=== PATIENT | female | born 1975 | race Hispanic/Latino ===

== ENCOUNTER 2017-08-30 10:32 | Emergency (ER) | payer OTHER ==
[~2017-08-30 10:32] MED LIST: TORADOL10 MG PO; VICODIN5-300 PO; ZOFRAN4 M1 SL
--- NOTE | 2017-08-30 12:18 | ED HEADACHE COMPLAINT ---
History of Present Illness General Chief Complaint: Headache Stated Complaint: NELSON X 2 DAYS Source: patient Exam Limitations: no limitations Vital Signs & Intake/Output Vital Signs & Intake/Output Vital Signs Date Time Temp Pulse Resp B/P B/P Pulse O2 O2 Flow FiO2 Mean Ox Delivery Rate 08/30 1039 96.5 84 16 109/75 98 Room Air Allergies Coded Allergies: ciprofloxacin (From CIPRO) (HIVES 08/30/17) Reconcile Medications Albuterol Sulfate (Proair Hfa) 90 MCG HFA.AER.AD 2 PUF INH AD PRN RESP. ( Reported) Butalb/Acetaminophen/Caffeine (Esgic Capsule) 50 MG-325 MG-40 MG CAPSULE 1 CAP PO Q6H PRN HEADACHE Esomeprazole (Nexium) 40 MG CAPSULE.DR 1 CAP PO DAILY GI (Reported) Metoclopramide HCl (Reglan) 10 MG TABLET 1 TAB PO 4 TIMES/DAY PRN NAUSEA 30 minutes before meals and bedtime Nystatin (Unknown Strength) ORAL.SUSP (Unknown Dose) UNKNOWN (Reported) Prednisone (Unknown Strength) TABLET (Unknown Dose) UNKNOWN (Reported) Triage Note: PT TO ED WITH NELSON FOR A FE DAYS. HAS USED HOME TREATMENT WITH NO RELIEF. STARTING TO FEEL NAUSEOUS NOW WELL. Triage Nurses Notes Reviewed? yes Onset: Abrupt Duration: day(s): (2), constant, continues in ED Timing: single episode today Quality/Severity: mild, moderate, pressure Severity Numbers: 8 Head Injury Location: frontal, parietal No Modifying Factors: none Associated Symptoms: nausea/vomiting LMP (ages 10-50): unknown : No Patient currently breastfeeds: No HPI: 42-year-old female history of kidney stones and anemia present evaluation of a headache. Patient reports that headache developed about 2 days ago and has been persistent. The pain is located in the right frontal and right parietal areas. Described as pressure. There is no head trauma or triggering event no neck pain. Patient notes she has a history of similar headaches but never been this severe or persistent. She's been taking ibuprofen without any improvement last dose yesterday. No fevers changes in vision. She does note associated nausea and vomiting. No neck stiffness chest pain shortness of breath rashes or any other symptoms. Past History Travel History Traveled to [place] past 21 day No Medical History Any Pertinent Medical History? 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 No Review of Systems Review of Systems Constitutional: Reports: no symptoms. Eyes: Reports: no symptoms. Ears, Nose, Throat, Mouth: Reports: no symptoms. Respiratory: Reports: no symptoms. Cardiovascular: Reports: no symptoms. Gastrointestinal/Abdominal: Reports: see HPI, nausea, vomiting. Genitourinary: Reports: no symptoms. Musculoskeletal: Reports: no symptoms. Skin: Reports: no symptoms. Neurological/Psychological: Reports: see HPI, headache. Hematologic/Endocrine: Reports: no symptoms. Endocrine: Reports: no symptoms. Immunologic/Allergic: Reports: no symptoms. All Other Systems: Reviewed and Negative Physical Exam Physical Exam General Appearance: well developed/nourished, no apparent distress, alert, awake Head: atraumatic, normal appearance Eyes: Bilateral: normal appearance, PERRL, EOMI. Ears, Nose, Throat: hearing grossly normal Neck: normal inspection, supple, full range of motion Respiratory: normal breath sounds, chest non-tender, no respiratory distress, lungs clear Cardiovascular: regular rate/rhythm, normal peripheral pulses Gastrointestinal: soft, non-tender Back: normal inspection, normal range of motion, no vertebral tenderness Extremities: normal inspection, normal range of motion, no edema Psychiatric: awake, alert, oriented x 3 Cranial Nerves: normal hearing, normal speech, PERRL Coordination/Gait: normal finger to nose, normal gait Motor/Sensory: no motor/sensory deficits, motor deficit Skin: intact, normal color, warm/dry Lymphatic: no anterior cervical francis Core Measures Sepsis Present: No Sepsis Focused Exam Completed? No Progress Differential Diagnosis: cluster NELSON, IC mass/tumor, intracranial Hem., meningitis , migraine NELSON, musculoskeletal pain, sinusitis, subarach. Hem., tension NELSON, temporal arteritis Plan of Care: Orders Procedure Date/time Status URINE 08/30 1119 Complete URINALYSIS 08/30 1119 Complete Laboratory Tests 08/30/17 1140: Urinalysis HEAVY H, Urine Color YEL, Urine Clarity HAZY H, Urine pH 7.5, Ur Specific [place] 1.015, Urine Protein NEG, Urine Ketones NEG, Urine Nitrite NEG, Urine Bilirubin NEG, Urine Urobilinogen 0.2, Ur Leukocyte Esterase NEG, Ur Microscopic SEDIMENT EXAMINED, Urine RBC RARE, Urine WBC RARE, Ur Epithelial Cells MANY H, Urine Bacteria FEW H, Urine Hemoglobin NEG, Urine Glucose NEG, Urine Test NEGATIVE Patient is here with a headache that started 2 days ago and has been persistent. She has a history of similar headaches but not this severe and persistent. No head trauma she is afebrile vital signs are stable neurologically intact. Onset was gradual no thunderclap symptoms gradually got worse. CT scan ordered patient medicated with Reglan and Toradol and Benadryl. Reports persistent headache despite Toradol. Fioricet was ordered. CT scan is negative patient is feeling better now after medications. She is able to tolerate fluids. There's been no vomiting here. She remains neurologically intact. Patient was given prescription for Reglan and Fioricet to go home with. Advised her to follow-up with her doctor the next few days. Discussed return precautions patient agrees the plan Diagnostic Imaging: Viewed by Me: CT Scan. Discussed w/RAD: CT Scan. Radiology Impression: PATIENT: DERREK NEGRETE PRESENT AGE: 42 PATIENT ACCOUNT NO: [id number] : 76 LOCATION: [facility] ORDERING PHYSICIAN: Michael PATTERSON SERVICE DATE: 08/30/17 EXAM TYPE: CAT - CT HEAD WO IV CONTRAST EXAMINATION: CT HEAD WITHOUT CONTRAST CLINICAL INFORMATION: Headache. Nausea for 2 days. Presumptive diagnosis of intracranial mass. COMPARISON: None TECHNIQUE: Contiguous axial imaging was performed from the skull base to vertex without intravenous administration of contrast. DLP: 620.93 mGy-cm FINDINGS: There is no evidence of acute intracranial hemorrhage or territorial infarction. No abnormal mass effect or midline shift is seen. Kirby to white matter differentiation is well preserved. No extra-axial fluid collections are identified. The ventricles are normal in size. There is no abnormal attenuation within the brain parenchyma. The osseous structures and soft tissues are normal. The mastoid air cells and visualized portions of the paranasal sinuses are well aerated. IMPRESSION: No acute intracranial pathology. DICTATED BY: Natalia Sandoval MD DATE/TIME DICTATED:08/30/171227 DINING MANAGER:MITALI DATE/TIME TRANSCRIBED:07/15/18 / 1228 CONFIDENTIAL, DO NOT COPY WITHOUT APPROPRIATE AUTHORIZATION. <Electronically signed in Other Vendor System> SIGNED BY: Natalia Sandoval MD 08/30/17 1235 Departure Departure Disposition: HOME OR SELF CARE Condition: Stable Clinical Impression Primary Impression: Headache Qualifiers: Headache type: unspecified Headache chronicity pattern: acute headache Intractability: not intractable Qualified Code: R51 - Headache Referrals: Robert Farias MD (PCP/Family) Additional Instructions: Rest, drink plenty of fluids. Continue Reglan and Fioricet and ibuprofen for headache and nausea. Make a follow-up with YOUr primary care doctor for the next week. Monitor symptoms and return with any concerns. Departure Forms: Customer Survey General Discharge Information Prescriptions: Current Visit Scripts Butalb/Acetaminophen/Caffeine (Esgic Capsule) 1 CAP PO Q6H PRN HEADACHE #20 CAP Metoclopramide HCl (Reglan) 1 TAB PO 4 TIMES/DAY PRN NAUSEA #30 TAB 30 minutes before meals and bedtime
--- NOTE | 2017-08-30 12:35 | CT SCAN REPORT ---
EXAMINATION: CT HEAD WITHOUT CONTRAST CLINICAL INFORMATION: Headache. Nausea for 2 days. Presumptive diagnosis of intracranial mass. COMPARISON: None TECHNIQUE: Contiguous axial imaging was performed from the skull base to vertex without intravenous administration of contrast. DLP: 620.93 mGy-cm FINDINGS: There is no evidence of acute intracranial hemorrhage or territorial infarction. No abnormal mass effect or midline shift is seen. Kirby to white matter differentiation is well preserved. No extra-axial fluid collections are identified. The ventricles are normal in size. There is no abnormal attenuation within the brain parenchyma. The osseous structures and soft tissues are normal. The mastoid air cells and visualized portions of the paranasal sinuses are well aerated. IMPRESSION: No acute intracranial pathology.
[2017-08-30] MEDS ORDERED: PREDNISONE10 M2 (13:01)
[2017-08-30] MEDS ORDERED: NEXIUM40 M1 PO (13:02)
[2017-08-30] MEDS ORDERED: NYSTATIN100000 UNI (13:02)
[2017-08-30] MEDS ORDERED: PROAIR HFA8.5 GM INH (13:02)
[2017-08-30] MEDS ORDERED: ESGIC CAPSULE1 EACH PO (13:07)
[2017-08-30] MEDS ORDERED: REGLAN10 M1 PO (13:07)
[2017-08-30 13:23] VITALS: BP 112/74
== END 2017-08-30 13:23 ==
LOC: ERH 10:32
DX: R51 Headache (principal)
CPT/HCPCS: 81001; 81025; 96372; J1885

== ENCOUNTER 2017-09-01 18:29 | Emergency (ER) | payer OTHER ==
[~2017-09-01] VITALS: Ht 167.6 cm; Wt 82.6 kg
[~2017-09-01 18:29] MED LIST changes: +ESGIC CAPSULE1 EACH PO; +NEXIUM40 M1 PO; +NYSTATIN100000 UNI; +PREDNISONE10 M2; +PROAIR HFA8.5 GM INH; +REGLAN10 M1 PO
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
[2017-09-01 20:33] VITALS: BP 112/74
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
[2017-09-01] MEDS ORDERED: CYCLOBENZAPRINE10 M1 PO (21:37)
== END 2017-09-01 21:47 ==
LOC: ERH 18:29
DX: S16.1XXA Strain of muscle, fascia and tendon at neck level, initial encounter (principal); V49.40XA Driver injured in collision with unspecified motor vehicles in traffic accident, initial encounter; Y92.9 Unspecified place or not applicable
CPT/HCPCS: 72050; 73030-LT; 81025

== ENCOUNTER 2017-11-03 15:04 | Emergency (ER) | payer OTHER ==
[~2017-11-03] VITALS: Ht 157.5 cm; Wt 81.6 kg
[~2017-11-03 15:04] MED LIST changes: +CYCLOBENZAPRINE10 M1 PO
[2017-11-03 16:02] LABS: ABSOLUTE BASOPHIL COUNT 0 /CUMM (0.0-0.2); ABSOLUTE EOSINOPHIL COUNT 0.2 /CUMM (0.0-0.7); ABSOLUTE GRANULOCYTE CT 4.3 /CUMM (1.4-6.5); ABSOLUTE LYMPH COUNT 1.9 /CUMM (1.2-3.4); ABSOLUTE MONOCYTE COUNT 0.5 /CUMM (0.10-0.60); BASOPHIL % 0.5 % (0.0-2.0); EOSINOPHIL % 2.7 % (0-5); GRANULOCYTE % 61.7 % (42.2-75.2); HEMATOCRIT 33.9 % (37-47); MEAN CORPUSCULAR HGB 25.3 PG (27.0-31.0); MEAN CORPUSCULAR HGB CONC 32.1 G/DL (33.0-37.0); MEAN CORPUSCULAR VOLUME 78.7 FL (81.0-99.0); MEAN PLATELET VOLUME 8.2 FL (7.4-10.4); PLATELET COUNT 265 /CUMM (130-400); RBC DISTRIBUTION WIDTH 15.4 % (11.5-14.5)
--- NOTE | 2017-11-03 17:08 | CT SCAN REPORT ---
EXAMINATION: CT ABDOMEN AND PELVIS WITHOUT CONTRAST CLINICAL INFORMATION: Right lower quadrant pain, rule out appendicitis. COMPARISON: CT abdomen and pelvis 06/30/2014 TECHNIQUE: Multidetector volumetric imaging was performed from the superior aspect of the liver through the pubic symphysis. Sagittal and coronal reformatted images were obtained on the technologist's workstation. DLP: 463.21 mGy-cm FINDINGS: LUNG BASES: The visualized lung bases are unremarkable. LIVER, GALLBLADDER, AND BILIARY TREE: The liver is normal in size, shape, and attenuation. No focal hepatic lesion or biliary ductal dilatation is present. Small calcified granuloma in segment 6 of the liver. The gallbladder is decompressed. PANCREAS: Unremarkable. SPLEEN: Unremarkable. ADRENAL GLANDS: Unremarkable. KIDNEYS AND URETERS: The kidneys are symmetrically sized. There is a 3.7 cm cyst in the upper pole of the left kidney. Punctate nonobstructing calculus in the lower pole of the left kidney. No hydronephrosis. BLADDER: The partially distended bladder is unremarkable. There is a punctate calcification seen on axial series 3, 626/744 and coronal series 601, 67/139 that I do not believe is intraluminal however recommend correlation with symptoms and urinalysis to assess whether this may have been a passed renal calculus. GASTROINTESTINAL TRACT: The small and large bowel are unremarkable. No evidence of bowel obstruction, bowel wall thickening are surrounding inflammatory change. The appendix is not definitively visualized however there are no secondary inflammatory signs to suggest an acute appendicitis. ABDOMINAL WALL: No significant hernia is appreciated. LYMPH NODES: No abdominal or pelvic lymphadenopathy. VASCULAR: Unremarkable. PELVIC VISCERA: Unremarkable. OSSEOUS STRUCTURES: Unremarkable. IMPRESSION: 1. No acute process in the abdomen or pelvis to explain the patient's right lower quadrant pain. The appendix is not visualized however there are no secondary signs of an acute appendicitis. 2. Nonobstructing punctate calculus in the lower pole of the left kidney. 3. There is a punctate calcification in the pelvis, unclear if it is within the urinary bladder or adjacent to it on this noncontrast enhanced exam. Recommend correlation with clinical history and urinalysis as it is possible this may represent a passed renal calculus.
--- NOTE | 2017-11-03 17:37 | ED GI/GU/ABDOMINAL COMPLAINT ---
History of Present Illness General Chief Complaint: Abdominal Pain/Flank Pain Stated Complaint: SENT BY URGENT CARE FOR EVAL OF ABD PAIN Source: patient Exam Limitations: no limitations Vital Signs & Intake/Output Vital Signs & Intake/Output Vital Signs Date Time Temp Pulse Resp B/P B/P Pulse O2 O2 Flow FiO2 Mean Ox Delivery Rate 11/03 1743 Room Air 11/03 1740 98.1 84 18 110/71 98 Room Air 11/03 1523 96.3 86 15 118/89 98 Room Air Room Air Allergies Coded Allergies: ciprofloxacin (From CIPRO) (HIVES 08/30/17) Reconcile Medications Albuterol Sulfate (Proair Hfa) 90 MCG HFA.AER.AD 2 PUF INH AD PRN RESP. ( Reported) Butalb/Acetaminophen/Caffeine (Esgic Capsule) 50 MG-325 MG-40 MG CAPSULE 1 CAP PO Q6H PRN HEADACHE Cyclobenzaprine HCl 10 MG TABLET 1 TAB PO QPM PRN MUSCLE RELAXOR Esomeprazole (Nexium) 40 MG CAPSULE.DR 1 CAP PO DAILY GI (Reported) Ibuprofen 800 MG TABLET 1 TAB PO TID pain Metoclopramide HCl (Reglan) 10 MG TABLET 1 TAB PO 4 TIMES/DAY PRN NAUSEA 30 minutes before meals and bedtime Nitrofurantoin Monohyd/M-Cryst (Macrobid 100 MG Capsule) 100 MG CAPSULE 1 CAP PO BID uti with food Nystatin (Unknown Strength) ORAL.SUSP (Unknown Dose) UNKNOWN (Reported) Phenazopyridine HCl (Pyridium) 200 MG TABLET 1 TAB PO TID uti Prednisone (Unknown Strength) TABLET (Unknown Dose) UNKNOWN (Reported) Triage Note: PT SENT TO ED FOR R/O APPENDICITIS FROM WALK IN CLINIC FOR PERIUMBILICAL PAIN WITH RLQ PAIN THAT STARTED THIS MORNING. DENIES N/V/D/ G/U SYMPTOMS. Triage Nurses Notes Reviewed? yes ? n Is pt currently ? No Onset: Abrupt Duration: hour(s): Location: periumbilical, right lower quadrant Radiation: no radiation HPI: 42-year-old in by walk in clinic to rule out appendicitis. He started with some pain around her belly button. Denies any nausea vomiting. Denies any fever chills. Denies any changes in bowel movement. Denies any urinary symptoms or vaginal discharge. She reports that she went to the walk-in clinic and when she was examined the majority of her pain was in her right lower quadrant. Past History Travel History Traveled to [place] past 21 day No Medical History Any Pertinent Medical History? 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 No Review of Systems Review of Systems Constitutional: Reports: no symptoms. EENTM: Reports: no symptoms. Respiratory: Reports: no symptoms. Cardiovascular: Reports: no symptoms. GI: Reports: no symptoms. Genitourinary: Reports: no symptoms. Musculoskeletal: Reports: no symptoms. Skin: Reports: no symptoms. Neurological/Psychological: Reports: no symptoms. Hematologic/Endocrine: Reports: no symptoms. Immunologic/Allergic: Reports: no symptoms. All Other Systems: Reviewed and Negative Physical Exam Physical Exam General Appearance: well developed/nourished, no apparent distress, alert, awake Head: atraumatic, normal appearance Eyes: Bilateral: normal appearance. Ears, Nose, Throat, Mouth: hearing grossly normal, moist mucous membrane Neck: normal inspection Respiratory: no respiratory distress Cardiovascular: regular rate/rhythm Gastrointestinal: soft, tenderness right lower quadrant Back: normal inspection Extremities: normal range of motion Neurologic/Psych: awake, alert, oriented x 3, normal gait Skin: intact, normal color Core Measures ACS in differential dx? No Sepsis Present: No Sepsis Focused Exam Completed? No Progress Differential Diagnosis: appendicitis, biliary colic, diverticulitis, gastritis, kidney stone, UTI/pyelo Plan of Care: Orders Procedure Date/time Status Add-on Test (ER Only) 11/03 1741 Active CULTURE,URINE 11/03 1537 Active URINE 11/03 1526 Complete URINALYSIS 11/03 1526 Complete LIPASE 11/03 1526 Complete COMPREHENSIVE METABOLIC PANEL 11/03 1526 Complete CBC WITHOUT DIFFERENTIAL 11/03 1526 Complete Laboratory Tests 11/03/17 1545: Anion Gap 9, Estimated GFR > 60, BUN/Creatinine Ratio 14.3, Glucose 111 H, Calcium 9.0, Total Bilirubin 0.2, AST 18, ALT 23, Alkaline Phosphatase 65, Total Protein 7.1, Albumin 3.9, Globulin 3.2, Albumin/Globulin Ratio 1.2, Lipase 164, CBC w Diff NO MAN DIFF REQ, RBC 4.30, MCV 78.7 L, MCH 25.3 L, MCHC 32.1 L, RDW 15.4 H, MPV 8.2, Gran % 61.7, Lymphocytes % 27.5, Monocytes % 7.6, Eosinophils % 2.7, Basophils % 0.5, Absolute Granulocytes 4.3, Absolute Lymphocytes 1.9, Absolute Monocytes 0.5, Absolute Eosinophils 0.2, Absolute Basophils 0 11/03/17 1537: Urinalysis MANY H, Urine Color YEL, Urine Clarity HAZY H, Urine pH 7.5, Ur Specific Universal 1.015, Urine Protein NEG, Urine Ketones NEG, Urine Nitrite NEG, Urine Bilirubin NEG, Urine Urobilinogen 0.2, Ur Leukocyte Esterase TRACE H, Ur Microscopic SEDIMENT EXAMINED, Urine WBC RARE, Ur Epithelial Cells FEW, Urine Hemoglobin NEG, Urine Glucose NEG, Urine Test NEGATIVE Microbiology 11/03 1536 URINE ROUT: Urine Culture - RECD Diagnostic Imaging: Viewed by Me: CT Scan. Discussed w/RAD: CT Scan. Radiology Impression: PATIENT: DERREK NEGRETE PRESENT AGE: 42 PATIENT ACCOUNT NO: [id number] : 76 LOCATION: [facility] ORDERING PHYSICIAN: Shar PATTERSON SERVICE DATE: 11/03/17 EXAM TYPE: CAT - CT ABD & PELVIS W/O IV CONTRAS EXAMINATION: CT ABDOMEN AND PELVIS WITHOUT CONTRAST CLINICAL INFORMATION: Right lower quadrant pain, rule out appendicitis. COMPARISON: CT abdomen and pelvis 06/30/2014 TECHNIQUE: Multidetector volumetric imaging was performed from the superior aspect of the liver through the pubic symphysis. Sagittal and coronal reformatted images were obtained on the technologist's workstation. DLP: 463.21 mGy-cm FINDINGS: LUNG BASES: The visualized lung bases are unremarkable. LIVER, GALLBLADDER, AND BILIARY TREE: The liver is normal in size, shape, and attenuation. No focal hepatic lesion or biliary ductal dilatation is present. Small calcified granuloma in segment 6 of the liver. The gallbladder is decompressed. PANCREAS: Unremarkable. SPLEEN: Unremarkable. ADRENAL GLANDS: Unremarkable. KIDNEYS AND URETERS: The kidneys are symmetrically sized. There is a 3.7 cm cyst in the upper pole of the left kidney. Punctate nonobstructing calculus in the lower pole of the left kidney. No hydronephrosis. BLADDER: The partially distended bladder is unremarkable. There is a punctate calcification seen on axial series 3, 626/744 and coronal series 601, 67/139 that I do not believe is intraluminal however recommend correlation with symptoms and urinalysis to assess whether this may have been a passed renal calculus. GASTROINTESTINAL TRACT: The small and large bowel are unremarkable. No evidence of bowel obstruction, bowel wall thickening are surrounding inflammatory change. The appendix is not definitively visualized however there are no secondary inflammatory signs to suggest an acute appendicitis. ABDOMINAL WALL: No significant hernia is appreciated. LYMPH NODES: No abdominal or pelvic lymphadenopathy. VASCULAR: Unremarkable. PELVIC VISCERA: Unremarkable. OSSEOUS STRUCTURES: Unremarkable. IMPRESSION: 1. No acute process in the abdomen or pelvis to explain the patient's right lower quadrant pain. The appendix is not visualized however there are no secondary signs of an acute appendicitis. 2. Nonobstructing punctate calculus in the lower pole of the left kidney. 3. There is a punctate calcification in the pelvis, unclear if it is within the urinary bladder or adjacent to it on this noncontrast enhanced exam. Recommend correlation with clinical history and urinalysis as it is possible this may represent a passed renal calculus. DICTATED BY: Juvenal Stevenson MD DATE/TIME DICTATED:11/03/171654 CERTIFIED CREDIT COUNSELOR:MITALI DATE/TIME TRANSCRIBED:11/03/171654 CONFIDENTIAL, DO NOT COPY WITHOUT APPROPRIATE AUTHORIZATION. <Electronically signed in Other Vendor System> SIGNED BY: Juvenal Stevenson MD 11/03/17 1708 Initial ED EKG: none Comments: 11/03/2017 11:18:46 PM Patient clinically looks well. Patient is in no apparent distress. Patient is nontoxic-appearing. Resting comfortably in room. Follow-up with PCP. Questionable recently passed kidney stone. Patient understands and agrees a plan of care. Departure Departure Disposition: HOME OR SELF CARE Condition: Stable Clinical Impression Primary Impression: Abdominal pain Referrals: Robert Farias MD (PCP/Family) Additional Instructions: Follow-up with primary care doctor. Return if any concerns worsening symptoms. Please go over all results of today's visit with your primary care doctor. Contact your primary care doctor to let them know you were here in the emergency room. There may be nonspecific findings which may not be related to your visit today here in the emergency room but may require further evaluation and chronic monitoring by your primary care doctor. If you had a laceration today the chance of foreign body always remains. You should follow-up with your primary care doctor for recheck in 3-5 days for a wound check. If you had an x-ray done there is a chance that a fracture could have been missed on initial read and you should follow-up with your primary care doctor for repeat x-rays if symptoms persist. If your blood pressure was elevated here in the emergency room please have rechecked by jamey primary care doctor within the next 48. If you were prescribed a narcotic here in the emergency room or any type of controlled substances you're not allowed to drive while taking this medication or operate any type of heavy machinery. Narcotics can make you feel lightheaded dizziness nausea and can cause constipation. You may need to waste picker a stool softener. Thank you for choosing [facility] emergency room. Please return to the emergency room immediately if you have any other concerns worsening of symptoms. Departure Forms: Customer Survey General Discharge Information Prescriptions: Current Visit Scripts Nitrofurantoin Monohyd/M-Cryst (Macrobid 100 MG Capsule) 1 CAP PO BID #14 CAP with food Phenazopyridine HCl (Pyridium) 1 TAB PO TID #9 TAB Ibuprofen 1 TAB PO TID #30 TAB
[2017-11-03 17:40] VITALS: BP 110/71
[2017-11-03] MEDS ORDERED: IBUPROFEN800 M1 PO (17:41)
[2017-11-03] MEDS ORDERED: PYRIDIUM200 M1 PO (17:41)
[2017-11-03] MEDS ORDERED: MACROBID 100 M100 MG PO (17:41)
== END 2017-11-03 17:47 ==
LOC: ERH 15:04
PROVIDERS: Physician Assistant Medical
DX: R10.31 Right lower quadrant pain (principal); D64.9 Anemia, unspecified; D25.9 Leiomyoma of uterus, unspecified; F17.210 Nicotine dependence, cigarettes, uncomplicated
CPT/HCPCS: 74176; 81001; 81025; 87086